=== PATIENT | female | born 1950 | race Asian ===

== ENCOUNTER 2016-06-20 13:44 | Outpatient (CLI) | payer OTHER ==
[~2016-06-20 13:44] MED LIST: ASA FREE160 MG PO; CARAFATE1 GM PO; CIPRO500 MG PO; CYMBALTA30 MG PO; DOCU100C10 PO; DULO30CA OR; EQ OMEPRAZOLE20 MG OR; FENT50DI TD; FERR325T5 PO; FLUC150T PO; FLUT0.05 NAS; FURO40TA93 PO; GABA100C2 PO; GLIP10TA55 PO; HYDR12.54 PO; IBUP800T30 PO; LASIX40 MG OR; LEVAQUIN500 MG OR; LORTAB 10-325 M1 TAB PO; MECLIZINE25 MG OR; METF500T PO; METFORMIN500 M1 PO; METOCLOPRAM10 MG OR; METOCLOPRAM5 MG OR; NIFE60TA5 PO; OMEPRAZOLE20 M1 PO; OXYB5TAB56 PO; POTA20TA4 PO; PROCARDIA XL30 MG; PROCARDIA XL30 MG PO; SENOKOT8.6 MG PO; TEMA30CA18 PO; TOPAMAX100 MG PO; TOPI100T PO; VICODIN1 TA1 PO; VIT A & D; VITAMIN D PO; VITAMIN D1000 UNIT OR; ZANAFLEX4 M1 PO; [UNRECOGNIZED DRUG - CODE] OR
[2016-06-20 14:07] LABS: POTASSIUM 4.3 mmol/L (3.6-5.2)
== END 2016-06-20 14:44 | disposition home or self-care (01) ==
LOC: LABW 13:44
PROVIDERS: Internal Medicine Cardiovascular Disease
DX: R06.09 Other forms of dyspnea (principal); R60.0 Localized edema; Z09 Encounter for follow-up examination after completed treatment for conditions other than malignant neoplasm
CPT/HCPCS: 36415; 80048

== ENCOUNTER 2016-06-26 17:36 | Emergency (ER) | payer OTHER ==
[~2016-06-26] VITALS: Ht 162.6 cm; Wt 126.1 kg
[2016-06-26 17:45] VITALS: BP 157/73; TEMP 98
[2016-06-26 18:15] LABS: PLATELET COUNT 231 K/uL (152-353)
[2016-06-26 18:18] LABS: POTASSIUM 3.6 mmol/L (3.6-5.2)
== END 2016-06-26 19:25 | disposition home or self-care (01) ==
LOC: ED 17:36
DX: M51.86 Other intervertebral disc disorders, lumbar region (principal); M25.552 Pain in left hip
CPT/HCPCS: 80048; 81000; 85027; 99284; J1885

== ENCOUNTER 2016-07-02 13:20 | Outpatient (CLI) | payer OTHER | END 2016-07-02 23:00 | disposition home or self-care (01) | LOC: RAD 13:20 | DX: M06.09 Rheumatoid arthritis without rheumatoid factor, multiple sites (principal); E55.9 Vitamin D deficiency, unspecified ==

== ENCOUNTER 2016-08-08 13:44 | Emergency (ER) | payer OTHER ==
[~2016-08-08] VITALS: Ht 162.6 cm; Wt 123.4 kg
[2016-08-08] MEDS ORDERED: PRED20TA27 PO (14:58)
[2016-08-08 14:59] VITALS: BP 139/86; TEMP 98
== END 2016-08-08 15:05 | disposition home or self-care (01) ==
LOC: ED 13:44
DX: G89.29 Other chronic pain (principal); M13.88 Other specified arthritis, other site
CPT/HCPCS: 96372; 99282; J1885

== ENCOUNTER 2016-10-25 11:06 | Outpatient (CLI) | payer OTHER ==
[~2016-10-25 11:06] MED LIST changes: +PRED20TA27 PO
== END 2016-10-25 20:01 | disposition home or self-care (01) ==
LOC: MAMMO 11:06
DX: Z12.31 Encounter for screening mammogram for malignant neoplasm of breast (principal)
CPT/HCPCS: G0202-TC

== ENCOUNTER 2016-11-08 13:42 | Emergency (ER) | payer OTHER ==
[~2016-11-08] VITALS: Ht 162.6 cm; Wt 121.6 kg
[2016-11-08 15:16] VITALS: BP 160/78; TEMP 98.2
== END 2016-11-08 15:24 | disposition home or self-care (01) ==
LOC: ED 13:42
DX: M19.022 Primary osteoarthritis, left elbow (principal)
CPT/HCPCS: 96372; 99283; J1885

== ENCOUNTER 2016-12-25 09:11 | Outpatient (CLI) | payer OTHER ==
[2016-12-25 09:41] LABS: PLATELET COUNT 182 K/uL (152-353)
[2016-12-25 10:09] LABS: POTASSIUM 4.2 mmol/L (3.6-5.2)
== END 2016-12-25 10:15 | disposition home or self-care (01) ==
LOC: LABW 09:11
PROVIDERS: Internal Medicine
DX: E11.9 Type 2 diabetes mellitus without complications (principal); I10 Essential (primary) hypertension; E66.01 Morbid (severe) obesity due to excess calories
CPT/HCPCS: 36415; 80053; 80061; 81000; 82043; 82570; 83036; 84443; 84550; 85027

== ENCOUNTER 2017-02-21 11:06 | Outpatient (CLI) | payer OTHER | END 2017-02-21 18:56 | disposition home or self-care (01) | LOC: LABW 11:06 | DX: M10.072 Idiopathic gout, left ankle and foot (principal) | CPT/HCPCS: 36415; 84550 ==

== ENCOUNTER 2017-03-27 13:27 | Outpatient (CLI) | payer OTHER | END 2017-03-27 14:30 | disposition home or self-care (01) | LOC: MAMMO 13:27 | DX: N64.4 Mastodynia (principal) ==

== ENCOUNTER 2017-06-23 14:37 | Outpatient (CLI) | payer OTHER | END 2017-06-23 20:42 | disposition home or self-care (01) | LOC: RESP 14:37 → MAMMO 15:00 → RESP 20:42 | DX: R06.09 Other forms of dyspnea (principal) | CPT/HCPCS: 94664 ==

== ENCOUNTER 2017-07-04 14:07 | Outpatient (CLI) | payer OTHER | END 2017-07-04 19:33 | disposition home or self-care (01) | LOC: MAMMO 14:07 | DX: N60.02 Solitary cyst of left breast (principal) ==

== ENCOUNTER 2017-08-05 16:02 | Outpatient (CLI) | payer OTHER | END 2017-08-05 19:52 | disposition home or self-care (01) | LOC: US 16:02 | DX: L03.116 Cellulitis of left lower limb (principal) ==

== ENCOUNTER 2017-08-18 15:53 | Outpatient (CLI) | payer OTHER ==
[2017-08-18 16:06] LABS: PLATELET COUNT 221 K/uL (152-353)
[2017-08-18 16:33] LABS: POTASSIUM 4.9 mmol/L (3.6-5.2)
== END 2017-08-18 19:24 | disposition home or self-care (01) ==
LOC: LABW 15:53
PROVIDERS: Internal Medicine
DX: E11.42 Type 2 diabetes mellitus with diabetic polyneuropathy (principal)
CPT/HCPCS: 36415; 80053; 80061; 81000; 82043; 82570; 83036; 84550; 85027

== ENCOUNTER 2017-09-11 16:02 | Outpatient (CLI) | payer OTHER ==
[2017-09-11 17:25] LABS: POTASSIUM 5.1 mmol/L (3.6-5.2)
== END 2017-09-11 19:37 | disposition home or self-care (01) ==
LOC: LABW 16:02
PROVIDERS: Internal Medicine
DX: R53.83 Other fatigue (principal)
CPT/HCPCS: 36415; 80048; 84439; 84443

== ENCOUNTER 2017-10-08 14:16 | Outpatient (CLI) | payer OTHER | END 2017-10-08 21:50 | disposition home or self-care (01) | LOC: US 14:16 | DX: M79.605 Pain in left leg (principal) ==

== ENCOUNTER 2017-12-22 19:15 | Emergency (ER) | payer OTHER ==
[~2017-12-22] VITALS: Ht 162.6 cm; Wt 117.0 kg
[2017-12-22 20:22] VITALS: BP 149/55; TEMP 98.5
== END 2017-12-22 20:47 | disposition home or self-care (01) ==
LOC: ED 19:15
DX: I82.402 Acute embolism and thrombosis of unspecified deep veins of left lower extremity (principal)
CPT/HCPCS: 99281

== ENCOUNTER 2017-12-23 15:17 | Outpatient (CLI) | payer OTHER | END 2017-12-23 19:14 | disposition home or self-care (01) | LOC: US 15:17 | DX: I80.3 Phlebitis and thrombophlebitis of lower extremities, unspecified (principal) ==

== ENCOUNTER 2018-01-01 15:05 | Outpatient (CLI) | payer OTHER ==
[2018-01-01 15:27] LABS: PLATELET COUNT 209 K/uL (152-353)
[2018-01-01 15:49] LABS: POTASSIUM 3.8 mmol/L (3.6-5.2)
== END 2018-01-01 22:54 | disposition home or self-care (01) ==
LOC: LABW 15:05
PROVIDERS: Internal Medicine
DX: E11.9 Type 2 diabetes mellitus without complications (principal)
CPT/HCPCS: 36415; 80053; 80061; 82043; 82570; 83036; 84439; 85027

== ENCOUNTER 2018-01-05 12:54 | Outpatient (CLI) | payer OTHER | END 2018-01-05 20:34 | disposition home or self-care (01) | LOC: CT 12:54 | DX: R10.31 Right lower quadrant pain (principal) | CPT/HCPCS: Q9963 ==

== ENCOUNTER 2018-01-14 10:04 | Outpatient (CLI) | payer OTHER | END 2018-01-14 22:11 | disposition home or self-care (01) | LOC: MAMMO 10:04 | DX: R92.8 Other abnormal and inconclusive findings on diagnostic imaging of breast (principal); M19.072 Primary osteoarthritis, left ankle and foot | CPT/HCPCS: 36415; 84550; 85651 ==

== ENCOUNTER 2018-04-07 14:18 | Outpatient (CLI) | payer OTHER ==
[2018-04-08] MEDS ORDERED: LINZESS290 MCG PO (20:24)
[2018-04-08] MEDS ORDERED: PANTOPRAZOLE 40MG TA PO (20:27)
[2018-04-08] MEDS ORDERED: ELIQUIS5 MG PO (21:42)
== END 2018-04-07 21:27 | disposition home or self-care (01) ==
LOC: RAD 14:18
DX: M79.604 Pain in right leg (principal)

== ENCOUNTER 2018-04-08 11:47 | Outpatient (CLI) | payer OTHER ==
[2018-04-08 13:30] LABS: POTASSIUM 4.4 mmol/L (3.6-5.2)
[2018-04-08] MEDS ORDERED: LINZESS290 MCG PO (20:24)
[2018-04-08] MEDS ORDERED: PANTOPRAZOLE 40MG TA PO (20:27)
[2018-04-08] MEDS ORDERED: ELIQUIS5 MG PO (21:42)
[2018-04-09] MEDS ORDERED: GABA400C2 PO ×2 (06:25→06:26)
[2018-04-09] MEDS ORDERED: METFORMIN HYD1000 M1 PO (06:28)
[2018-04-09] MEDS ORDERED: TIZANIDINE HYDRO4 MG PO (06:30)
[2018-04-09] MEDS ORDERED: TOPAMAX200 MG PO (06:31)
== END 2018-04-08 21:00 | disposition home or self-care (01) ==
LOC: LABW 11:47
PROVIDERS: Internal Medicine
DX: E11.9 Type 2 diabetes mellitus without complications (principal); D64.9 Anemia, unspecified
CPT/HCPCS: 36415; 80048; 83540; 83735; 84443

== ENCOUNTER 2018-04-08 15:09 | Outpatient (CLI) | payer OTHER ==
[2018-04-08] MEDS ORDERED: LINZESS290 MCG PO (20:24)
[2018-04-08] MEDS ORDERED: PANTOPRAZOLE 40MG TA PO (20:27)
[2018-04-08] MEDS ORDERED: ELIQUIS5 MG PO (21:42)
[2018-04-09] MEDS ORDERED: GABA400C2 PO ×2 (06:25→06:26)
[2018-04-09] MEDS ORDERED: METFORMIN HYD1000 M1 PO (06:28)
[2018-04-09] MEDS ORDERED: TIZANIDINE HYDRO4 MG PO (06:30)
[2018-04-09] MEDS ORDERED: TOPAMAX200 MG PO (06:31)
== END 2018-04-08 15:19 | disposition short-term general hospital (02) ==
LOC: AMB 15:09
DX: R55 Syncope and collapse (principal)
CPT/HCPCS: A0425; A0427

== ENCOUNTER 2018-04-08 15:22 | Observation (INO) | payer OTHER ==
[2018-04-08] VITALS (7 sets, daily range): BP systolic 112–158; BP diastolic 53–83; TEMP 97.9–98.5; Ht 162.6 cm; Wt 109.9 kg
[~2018-04-08] VITALS: Ht 162.6 cm; Wt 109.9 kg
[2018-04-08 17:14] LABS: PLATELET COUNT 238 K/uL (152-353)
[2018-04-08 17:23] LABS: PARTIAL THROMBOPLASTIN TIME 29.3 SECONDS (24.5-33.6)
[2018-04-08 17:33] LABS: POTASSIUM 3.8 mmol/L (3.6-5.2)
[2018-04-08] MEDS ORDERED: LINZESS290 MCG PO (20:24)
[2018-04-08] MEDS ORDERED: PANTOPRAZOLE 40MG TA PO (20:27)
[2018-04-08] MEDS ORDERED: ELIQUIS5 MG PO (21:42)
[2018-04-09 04:00] VITALS: BP 108/45; TEMP 98.6
[2018-04-09] MEDS ORDERED: GABA400C2 PO ×2 (06:25→06:26)
[2018-04-09] MEDS ORDERED: METFORMIN HYD1000 M1 PO (06:28)
[2018-04-09] MEDS ORDERED: TIZANIDINE HYDRO4 MG PO (06:30)
[2018-04-09] MEDS ORDERED: TOPAMAX200 MG PO (06:31)
[2018-04-09 08:00] VITALS: BP 117/51; TEMP 97.6
[2018-04-09 08:21] LABS: PLATELET COUNT 193 K/uL (152-353)
[2018-04-09 08:31] LABS: POTASSIUM 3.8 mmol/L (3.6-5.2)
[2018-04-09 12:00] VITALS: BP 120/45; TEMP 97.9
[2018-04-09 16:00] VITALS: BP 148/64; TEMP 97.8
== END 2018-04-09 16:40 | disposition home or self-care (01) ==
LOC: ED 15:22 → MED/SURG 18:45
PROVIDERS: Internal Medicine; ADMIT Family Medicine
DX: R55 Syncope and collapse (principal); E66.01 Morbid (severe) obesity due to excess calories; I10 Essential (primary) hypertension; G47.33 Obstructive sleep apnea (adult) (pediatric); Z86.711 Personal history of pulmonary embolism; M79.7 Fibromyalgia; E11.40 Type 2 diabetes mellitus with diabetic neuropathy, unspecified; R06.02 Shortness of breath; E11.9 Type 2 diabetes mellitus without complications; D64.9 Anemia, unspecified
CPT/HCPCS: 36415; 80048; 80053; 81000; 82550; 83540; 83735; 83880; 84443; 84484; 85027; 85379; 85610; 85730; 93005; 99220; 99283; G0378; J1885

== ENCOUNTER 2018-04-25 08:29 | Emergency (ER) | payer OTHER ==
[~2018-04-25] VITALS: Ht 162.6 cm; Wt 109.8 kg
[~2018-04-25 08:29] MED LIST changes: +ELIQUIS5 MG PO; +GABA400C2 PO; +LINZESS290 MCG PO; +METFORMIN HYD1000 M1 PO; +PANTOPRAZOLE 40MG TA PO; +TIZANIDINE HYDRO4 MG PO; +TOPAMAX200 MG PO
[2018-04-25 08:34] VITALS: TEMP 97.7
[2018-04-25 09:17] LABS: PLATELET COUNT 218 K/uL (152-353)
[2018-04-25 09:24] LABS: POTASSIUM 3.4 mmol/L (3.6-5.2); SODIUM 143 mmol/L (136-145)
[2018-04-25] MEDS ORDERED: METFORMIN ER1000 MG PO (09:32)
[2018-04-25] MEDS ORDERED: NIFE60TA5 PO (09:34)
[2018-04-25] MEDS ORDERED: SPIRONOLACT50 MG PO (09:35)
[2018-04-25] MEDS ORDERED: DEXL60CA4 PO (09:37)
[2018-04-25 10:15] VITALS: BP 146/84
== END 2018-04-25 10:30 | disposition home or self-care (01) ==
LOC: ED 08:29
PROVIDERS: Family Medicine
DX: R06.09 Other forms of dyspnea (principal); R07.89 Other chest pain; F41.8 Other specified anxiety disorders; R00.1 Bradycardia, unspecified
CPT/HCPCS: 80053; 82550; 82553; 83880; 84484; 85027; 85379; 93005; 96372; 99283; J2060

== ENCOUNTER 2018-05-21 10:33 | Emergency (ER) | payer OTHER ==
[~2018-05-21] VITALS: Ht 162.6 cm; Wt 112.5 kg
[~2018-05-21 10:33] MED LIST changes: +DEXL60CA4 PO; +METFORMIN ER1000 MG PO; +SPIRONOLACT50 MG PO
[2018-05-21 11:09] LABS: PLATELET COUNT 246 K/uL (152-353)
[2018-05-21 11:15] LABS: POTASSIUM 4.5 mmol/L (3.6-5.2); SODIUM 136 mmol/L (136-145)
[2018-05-21 12:00] VITALS: TEMP 98.1
[2018-05-21 15:15] VITALS: BP 172/77
== END 2018-05-21 15:15 | disposition home or self-care (01) ==
LOC: ED 10:33
DX: R11.2 Nausea with vomiting, unspecified (principal); I10 Essential (primary) hypertension; R00.1 Bradycardia, unspecified; R42 Dizziness and giddiness
CPT/HCPCS: 36415; 80053; 82550; 82553; 84484; 85027; 93005; 96361; 96365; 96374; 99284; J2405

== ENCOUNTER 2018-05-26 11:07 | Outpatient (CLI) | payer OTHER | END 2018-05-26 22:11 | disposition home or self-care (01) | LOC: CT 11:07 | DX: R10.31 Right lower quadrant pain (principal) | CPT/HCPCS: Q9963 ==

== ENCOUNTER 2018-07-23 11:14 | Outpatient (CLI) | payer OTHER | END 2018-07-23 22:24 | disposition home or self-care (01) | LOC: RAD 11:14 | DX: M06.09 Rheumatoid arthritis without rheumatoid factor, multiple sites (principal); M79.671 Pain in right foot ==

== ENCOUNTER 2018-08-05 11:34 | Day surgery (SDC) | payer OTHER ==
[2018-08-05 12:16] LABS: POTASSIUM 3.9 mmol/L (3.6-5.2)
[2018-08-05 12:18] LABS: PLATELET COUNT 237 K/uL (152-353)
== END 2018-08-05 15:35 | disposition home or self-care (01) ==
LOC: OR 11:34
PROVIDERS: Internal Medicine Gastroenterology
PROC: 0DBM8ZZ Excision of Descending Colon, Via Natural or Artificial Opening Endoscopic (ICD-10-PCS; principal; 2018-08-05)
PROC: 0DBN8ZZ Excision of Sigmoid Colon, Via Natural or Artificial Opening Endoscopic (ICD-10-PCS; 2018-08-05)
DX: D12.4 Benign neoplasm of descending colon (principal); D12.5 Benign neoplasm of sigmoid colon; K57.30 Diverticulosis of large intestine without perforation or abscess without bleeding; K64.8 Other hemorrhoids; R10.31 Right lower quadrant pain; R19.4 Change in bowel habit; K59.09 Other constipation; R93.89 Abnormal findings on diagnostic imaging of other specified body structures; Z12.11 Encounter for screening for malignant neoplasm of colon
CPT/HCPCS: 80053; 85027; J2001; J2250; J2405; J2704

== ENCOUNTER 2018-08-12 20:05 | Emergency (ER) | payer OTHER ==
[~2018-08-12] VITALS: Ht 162.6 cm; Wt 114.8 kg
[2018-08-12 22:13] VITALS: BP 174/78; TEMP 98.5
== END 2018-08-12 22:24 | disposition home or self-care (01) ==
LOC: ED 20:05
DX: S09.8XXA Other specified injuries of head, initial encounter (principal); S16.1XXA Strain of muscle, fascia and tendon at neck level, initial encounter; S46.812A Strain of other muscles, fascia and tendons at shoulder and upper arm level, left arm, initial encounter; V43.53XA Car driver injured in collision with pick-up truck in traffic accident, initial encounter; Y92.89 Other specified places as the place of occurrence of the external cause
CPT/HCPCS: 96372; 99283; J1885

== ENCOUNTER 2018-08-12 20:35 | Outpatient (CLI) | payer OTHER | END 2018-08-12 20:42 | disposition short-term general hospital (02) | LOC: AMB 20:35 | DX: S09.8XXA Other specified injuries of head, initial encounter (principal); S16.1XXA Strain of muscle, fascia and tendon at neck level, initial encounter; S46.812A Strain of other muscles, fascia and tendons at shoulder and upper arm level, left arm, initial encounter; V43.53XA Car driver injured in collision with pick-up truck in traffic accident, initial encounter; Y92.89 Other specified places as the place of occurrence of the external cause | CPT/HCPCS: A0425; A0426 ==

== ENCOUNTER 2018-09-04 09:04 | Outpatient (CLI) | payer OTHER ==
[2018-09-04 09:42] LABS: PLATELET COUNT 213 K/uL (152-353)
[2018-09-04 10:06] LABS: POTASSIUM 3.8 mmol/L (3.6-5.2)
== END 2018-09-04 19:46 | disposition home or self-care (01) ==
LOC: LABW 09:04 → RAD 13:00 → LABW 19:46
PROVIDERS: Internal Medicine Rheumatology
DX: E11.42 Type 2 diabetes mellitus with diabetic polyneuropathy (principal); Z78.0 Asymptomatic menopausal state; M85.89 Other specified disorders of bone density and structure, multiple sites; M89.9 Disorder of bone, unspecified
CPT/HCPCS: 36415; 80053; 80061; 81000; 83036; 84439; 84443; 85027

== ENCOUNTER 2018-11-13 13:15 | Outpatient (CLI) | payer OTHER | END 2018-11-13 19:23 | disposition home or self-care (01) | LOC: MRI 13:15 | DX: M54.2 Cervicalgia (principal); M54.12 Radiculopathy, cervical region ==

== ENCOUNTER 2018-12-26 13:12 | Outpatient (CLI) | payer OTHER ==
[2018-12-26 14:02] LABS: PLATELET COUNT 218 K/uL (152-353)
[2018-12-26 14:25] LABS: POTASSIUM 4.7 mmol/L (3.6-5.2)
== END 2018-12-26 22:33 | disposition home or self-care (01) ==
LOC: LAB 13:12
PROVIDERS: Internal Medicine
DX: E11.9 Type 2 diabetes mellitus without complications (principal)
CPT/HCPCS: 36415; 80053; 80061; 81000; 83036; 84439; 84443; 85027

== ENCOUNTER 2019-01-29 13:47 | Outpatient (CLI) | payer OTHER ==
[2019-01-29 14:20] LABS: POTASSIUM 4.1 mmol/L (3.6-5.2)
[2019-01-29 14:45] LABS: PLATELET COUNT 243 K/uL (152-353)
== END 2019-01-29 23:59 | disposition home or self-care (01) ==
LOC: LABW 13:47
PROVIDERS: Orthopaedic Surgery
DX: E56.8 Deficiency of other vitamins (principal); M06.09 Rheumatoid arthritis without rheumatoid factor, multiple sites; M15.0 Primary generalized (osteo)arthritis; R53.83 Other fatigue; Z79.899 Other long term (current) drug therapy; M25.50 Pain in unspecified joint
CPT/HCPCS: 36415; 80053; 85027; 85651; 86140

== ENCOUNTER 2019-03-26 14:42 | Outpatient (CLI) | payer OTHER | END 2019-03-26 19:48 | disposition home or self-care (01) | LOC: RAD 14:42 | DX: M25.511 Pain in right shoulder (principal); M25.572 Pain in left ankle and joints of left foot ==

== ENCOUNTER 2019-06-01 15:02 | Outpatient (CLI) | payer OTHER ==
[2019-06-01 15:35] LABS: POTASSIUM 4.5 mmol/L (3.6-5.2)
== END 2019-06-01 20:13 | disposition home or self-care (01) ==
LOC: LABW 15:02
PROVIDERS: Physician Assistant
DX: G89.29 Other chronic pain (principal); R25.2 Cramp and spasm
CPT/HCPCS: 36415; 80053; 83735

== ENCOUNTER 2019-07-14 10:31 | Outpatient (CLI) | payer OTHER | END 2019-07-14 10:34 | disposition short-term general hospital (02) | LOC: AMB 10:31 | DX: M54.2 Cervicalgia (principal); M54.5 Low back pain; M79.601 Pain in right arm; M79.604 Pain in right leg; W18.39XA Other fall on same level, initial encounter; Y92.89 Other specified places as the place of occurrence of the external cause | CPT/HCPCS: A0425; A0427 ==

== ENCOUNTER 2019-07-14 10:38 | Emergency (ER) | payer OTHER ==
[~2019-07-14] VITALS: Ht 162.6 cm; Wt 130.2 kg
[2019-07-14 10:38] VITALS: TEMP 98.1
[2019-07-14 14:30] VITALS: BP 148/70
== END 2019-07-14 14:36 | disposition home or self-care (01) ==
LOC: ED 10:41
DX: S09.8XXA Other specified injuries of head, initial encounter (principal); S49.81XA Other specified injuries of right shoulder and upper arm, initial encounter; S39.012A Strain of muscle, fascia and tendon of lower back, initial encounter; S16.1XXA Strain of muscle, fascia and tendon at neck level, initial encounter; W18.39XA Other fall on same level, initial encounter; Y92.89 Other specified places as the place of occurrence of the external cause
CPT/HCPCS: 96372; 99283; J1885

== ENCOUNTER 2019-07-29 14:48 | Outpatient (CLI) | payer OTHER ==
[2019-07-29 15:41] LABS: POTASSIUM 3.8 mmol/L (3.6-5.2)
== END 2019-07-29 19:38 | disposition home or self-care (01) ==
LOC: LABW 14:48
PROVIDERS: Internal Medicine
DX: E83.42 Hypomagnesemia (principal)
CPT/HCPCS: 36415; 80053; 83735

== ENCOUNTER 2020-03-03 15:11 | Outpatient (CLI) | payer OTHER | END 2020-03-03 23:33 | disposition home or self-care (01) | LOC: LAB 15:11 | DX: K64.0 First degree hemorrhoids (principal) | CPT/HCPCS: 82272 ==

== ENCOUNTER 2020-03-13 10:25 | Outpatient (CLI) | payer OTHER ==
[2020-03-13 11:03] LABS: PLATELET COUNT 213 K/uL (152-353)
== END 2020-03-13 23:33 | disposition home or self-care (01) ==
LOC: LABW 10:25
PROVIDERS: Internal Medicine Gastroenterology
DX: R19.5 Other fecal abnormalities (principal)
CPT/HCPCS: 36415; 82272; 85027

== ENCOUNTER 2020-03-15 08:45 | Outpatient (CLI) | payer OTHER | END 2020-03-15 19:03 | disposition home or self-care (01) | LOC: LAB 08:45 | DX: R19.5 Other fecal abnormalities (principal) | CPT/HCPCS: 82272 ==

== ENCOUNTER 2020-03-16 05:39 | Outpatient (CLI) | payer OTHER | END 2020-03-16 19:38 | disposition home or self-care (01) | LOC: LAB 05:39 | DX: R19.5 Other fecal abnormalities (principal) | CPT/HCPCS: 82272 ==

== ENCOUNTER 2020-06-05 15:03 | Emergency (ER) | payer OTHER ==
[~2020-06-05] VITALS: Ht 162.6 cm; Wt 130.2 kg
[2020-06-05 15:03] VITALS: TEMP 98
[2020-06-05 15:48] LABS: PLATELET COUNT 246 K/uL (152-353)
[2020-06-05 18:52] VITALS: BP 139/90
== END 2020-06-05 18:58 | disposition home or self-care (01) ==
LOC: ED 15:03
PROVIDERS: Emergency Medicine Emergency Medical Services
DX: M06.89 Other specified rheumatoid arthritis, multiple sites (principal); R10.84 Generalized abdominal pain
CPT/HCPCS: 80053; 81000; 82150; 83690; 83735; 85027; 87088; 96360; 96375; 99284; J1200; J2270; J2930

== ENCOUNTER 2020-06-23 11:59 | Emergency (ER) | payer OTHER ==
[~2020-06-23] VITALS: Ht 162.6 cm; Wt 131.5 kg
[2020-06-23 12:19] VITALS: TEMP 98.6
[2020-06-23 16:08] LABS: PLATELET COUNT 202 K/uL (152-353)
[2020-06-23 16:18] LABS: POTASSIUM 4.6 mmol/L (3.6-5.2)
[2020-06-23 18:00] VITALS: BP 135/78
== END 2020-06-23 18:56 | disposition home or self-care (01) ==
LOC: ED 11:59
PROVIDERS: Family Medicine
DX: J30.89 Other allergic rhinitis (principal); I50.9 Heart failure, unspecified; Z20.828 Contact with and (suspected) exposure to other viral communicable diseases
CPT/HCPCS: 80053; 82728; 85027; 87502; 87635; 87651; 99283; U0003

== ENCOUNTER 2020-06-28 08:55 | Outpatient (CLI) | payer OTHER | END 2020-06-28 19:31 | disposition home or self-care (01) | LOC: LABW 08:55 | PROVIDERS: ATTEND Internal Medicine | DX: E11.9 Type 2 diabetes mellitus without complications (principal); E83.42 Hypomagnesemia | CPT/HCPCS: 36415; 80061; 82043; 82570; 83036; 83735; 84439; 84443 ==

== ENCOUNTER 2020-07-05 08:13 | Outpatient (CLI) | payer OTHER | END 2020-07-05 19:19 | disposition home or self-care (01) | LOC: LAB 08:13 | PROVIDERS: ATTEND Internal Medicine | DX: Z20.828 Contact with and (suspected) exposure to other viral communicable diseases (principal) | CPT/HCPCS: 87635; G2023; U0003 ==

== ENCOUNTER 2020-09-07 13:59 | Outpatient (CLI) | payer OTHER ==
[2020-09-07 14:51] LABS: PLATELET COUNT 237 K/uL (152-353)
[2020-09-07 14:52] LABS: POTASSIUM 4.8 mmol/L (3.6-5.2)
== END 2020-09-07 19:36 | disposition home or self-care (01) ==
LOC: LAB 13:59
PROVIDERS: ATTEND Internal Medicine
DX: Z00.00 Encounter for general adult medical examination without abnormal findings (principal); Z13.820 Encounter for screening for osteoporosis; Z79.899 Other long term (current) drug therapy
CPT/HCPCS: 80053; 80061; 81000; 82306; 84439; 84443; 85027

== ENCOUNTER 2020-10-27 15:48 | Outpatient (CLI) | payer OTHER | END 2020-10-27 22:43 | disposition home or self-care (01) | LOC: RAD 15:48 | PROVIDERS: ATTEND Nurse Practitioner Family | DX: M06.09 Rheumatoid arthritis without rheumatoid factor, multiple sites (principal); M19.011 Primary osteoarthritis, right shoulder; M47.816 Spondylosis without myelopathy or radiculopathy, lumbar region; M75.51 Bursitis of right shoulder ==

== ENCOUNTER 2020-10-31 13:23 | Outpatient (CLI) | payer OTHER | END 2020-10-31 19:36 | disposition home or self-care (01) | LOC: US 13:23 | PROVIDERS: ATTEND Podiatrist | DX: I73.9 Peripheral vascular disease, unspecified (principal) ==

== ENCOUNTER 2020-11-23 16:23 | Outpatient (CLI) | payer OTHER | END 2020-11-23 22:53 | disposition home or self-care (01) | LOC: RAD 16:23 | PROVIDERS: ATTEND Internal Medicine | DX: R10.84 Generalized abdominal pain (principal) ==

== ENCOUNTER 2021-02-05 09:38 | Outpatient (CLI) | payer OTHER | END 2021-02-05 21:45 | disposition home or self-care (01) | LOC: RAD 09:38 | PROVIDERS: ATTEND Nurse Practitioner Family | DX: Z79.899 Other long term (current) drug therapy (principal); M47.896 Other spondylosis, lumbar region; M85.89 Other specified disorders of bone density and structure, multiple sites; R60.9 Edema, unspecified | CPT/HCPCS: A9561 ==

== ENCOUNTER 2021-03-27 10:45 | Emergency (ER) | payer OTHER ==
[~2021-03-27] VITALS: Ht 162.6 cm; Wt 134.7 kg
[2021-03-27 10:45] VITALS: TEMP 98.7
[2021-03-27 11:23] LABS: PLATELET COUNT 237 K/uL (152-353)
[2021-03-27 14:05] VITALS: BP 136/71
== END 2021-03-27 14:05 | disposition home or self-care (01) ==
LOC: ED 10:45
PROVIDERS: Hospitalist
DX: S16.1XXA Strain of muscle, fascia and tendon at neck level, initial encounter (principal); I50.9 Heart failure, unspecified; V49.40XA Driver injured in collision with unspecified motor vehicles in traffic accident, initial encounter; Y92.89 Other specified places as the place of occurrence of the external cause
CPT/HCPCS: 80048; 80320; 85027; 85610; 85730; 96374; 99284; J1885

== ENCOUNTER 2021-04-04 05:48 | Outpatient (CLI) | payer OTHER | END 2021-04-04 21:49 | disposition home or self-care (01) | LOC: RAD 05:48 | PROVIDERS: ATTEND Internal Medicine | DX: M25.512 Pain in left shoulder (principal) ==

== ENCOUNTER 2021-05-02 07:53 | Outpatient (CLI) | payer OTHER | END 2021-05-02 20:28 | disposition home or self-care (01) | LOC: US 07:53 | PROVIDERS: ATTEND Podiatrist | DX: I73.9 Peripheral vascular disease, unspecified (principal) ==

== ENCOUNTER → 2021-05-28 | Outpatient (CLI) | payer OTHER | LOC: RAD 12:32 | PROVIDERS: ATTEND Nurse Practitioner Family | DX: M06.09 Rheumatoid arthritis without rheumatoid factor, multiple sites (principal); M19.011 Primary osteoarthritis, right shoulder; M25.531 Pain in right wrist; M85.89 Other specified disorders of bone density and structure, multiple sites ==

== ENCOUNTER 2021-07-05 12:14 | Outpatient (CLI) | payer OTHER ==
[2021-07-05 12:58] LABS: PLATELET COUNT 213 K/uL (152-353)
[2021-07-05 13:28] LABS: POTASSIUM 4.3 mmol/L (3.6-5.2)
== END 2021-07-05 19:11 | disposition home or self-care (01) ==
LOC: LAB 12:14
PROVIDERS: ATTEND Internal Medicine
DX: E11.9 Type 2 diabetes mellitus without complications (principal); M19.91 Primary osteoarthritis, unspecified site
CPT/HCPCS: 80053; 80061; 81000; 82306; 83036; 83735; 84439; 84443; 85027

== ENCOUNTER 2021-07-16 08:33 | Outpatient (CLI) | payer OTHER | END 2021-07-16 19:00 | disposition home or self-care (01) | LOC: MRI 08:33 | PROVIDERS: ATTEND Podiatrist | DX: M76.822 Posterior tibial tendinitis, left leg (principal) ==

== ENCOUNTER 2021-07-30 13:09 | Outpatient (CLI) | payer OTHER ==
[2021-07-30 14:00] LABS: POTASSIUM 5.1 mmol/L (3.6-5.2)
== END 2021-07-30 19:17 | disposition home or self-care (01) ==
LOC: LAB 13:09
PROVIDERS: ATTEND Internal Medicine
DX: E83.42 Hypomagnesemia (principal)
CPT/HCPCS: 80048; 83735

== ENCOUNTER 2021-08-30 08:09 | Outpatient (CLI) | payer OTHER | END 2021-08-30 20:38 | disposition home or self-care (01) | LOC: RESP 08:09 | PROVIDERS: ATTEND Nurse Practitioner Family | DX: R06.09 Other forms of dyspnea (principal) ==

== ENCOUNTER 2021-10-17 09:02 | Outpatient (CLI) | payer OTHER | END 2021-10-17 21:38 | disposition home or self-care (01) | LOC: RAD 09:02 | PROVIDERS: ATTEND Nurse Practitioner Family | DX: M05.09 Felty's syndrome, multiple sites (principal); M47.816 Spondylosis without myelopathy or radiculopathy, lumbar region; M79.641 Pain in right hand; M81.0 Age-related osteoporosis without current pathological fracture; M85.89 Other specified disorders of bone density and structure, multiple sites ==

== ENCOUNTER 2021-11-09 10:01 | Emergency (ER) | payer OTHER ==
[~2021-11-09] VITALS: Ht 162.6 cm; Wt 135.6 kg
[2021-11-09 10:06] VITALS: BP 149/69; TEMP 98.3
== END 2021-11-09 10:55 | disposition home or self-care (01) ==
LOC: ED 10:01
DX: G89.29 Other chronic pain (principal); M79.7 Fibromyalgia
CPT/HCPCS: 93005; 96372; 99283; J2360

== ENCOUNTER 2021-11-15 14:47 | Outpatient (CLI) | payer OTHER | END 2021-11-15 19:00 | disposition home or self-care (01) | LOC: RAD 14:47 | PROVIDERS: ATTEND Internal Medicine | DX: S20.229D Contusion of unspecified back wall of thorax, subsequent encounter (principal); Y92.9 Unspecified place or not applicable ==

== ENCOUNTER 2021-11-29 10:58 | Observation (INO) | payer OTHER ==
[2021-11-29 10:58] VITALS: BP 144/61; TEMP 98.3
[2021-11-29 11:35] VITALS: BP 131/60
[2021-11-29 12:02] LABS: POTASSIUM 4.5 mmol/L (3.6-5.2)
[2021-11-29 12:07] LABS: PLATELET COUNT 214 K/uL (152-353)
[2021-11-29 12:22] LABS: PARTIAL THROMBOPLASTIN TIME 29.9 SECONDS (24.5-33.6)
[2021-11-29 18:02] VITALS: BP 161/70; TEMP 98; Ht 162.6 cm
[2021-11-29 20:00] VITALS: BP 143/46; TEMP 97.4
[2021-11-30] VITALS: BP 148/48; TEMP 97.2
[2021-11-30 04:00] VITALS: BP 129/46; TEMP 96.8
[2021-11-30 07:56] VITALS: BP 162/66; TEMP 97.8
[2021-11-30 09:57] VITALS: BP 135/63; TEMP 98.3
[2021-11-30] MEDS ORDERED: HYDROCODONE BIT1 TAB PO (10:56)
[2021-11-30] MEDS ORDERED: TEMA30CA18 PO (10:56)
[2021-11-30] MEDS ORDERED: FLUTICASON50 MCG/AC1 NAS (10:58)
[2021-11-30] MEDS ORDERED: MAGN400T4 PO (11:19)
[2021-11-30] MEDS ORDERED: GABA300C2 PO (11:21)
[2021-11-30] MEDS ORDERED: K-TAB20 MEQ PO (11:30)
[2021-11-30] MEDS ORDERED: FAMOTIDINE40 MG PO (11:31)
[2021-11-30 12:01] VITALS: BP 148/67; TEMP 98.1
== END 2021-11-30 13:58 | disposition home or self-care (01) ==
LOC: ED 10:58 → MED/SURG 15:44
PROVIDERS: ADMIT Emergency Medicine; ATTEND Internal Medicine
DX: R07.89 Other chest pain (principal); R06.02 Shortness of breath; R42 Dizziness and giddiness; I11.0 Hypertensive heart disease with heart failure; I50.9 Heart failure, unspecified; G47.33 Obstructive sleep apnea (adult) (pediatric); K21.9 Gastro-esophageal reflux disease without esophagitis; I82.499 Acute embolism and thrombosis of other specified deep vein of unspecified lower extremity; D50.8 Other iron deficiency anemias; E11.42 Type 2 diabetes mellitus with diabetic polyneuropathy; E11.65 Type 2 diabetes mellitus with hyperglycemia; M79.7 Fibromyalgia; T45.8X5A Adverse effect of other primarily systemic and hematological agents, initial encounter; Y92.89 Other specified places as the place of occurrence of the external cause
CPT/HCPCS: 36415; 80053; 82550; 82948; 84484; 85027; 85610; 85730; 87635; 93005; 96360; 96372; 96374; 96375; 99220; 99284; G0378; J0171; J1200; J1650; J1815; J2930; U0003

== ENCOUNTER 2021-12-18 10:03 | Outpatient (CLI) | payer OTHER ==
[~2021-12-18 10:03] MED LIST changes: +FAMOTIDINE40 MG PO; +FLUTICASON50 MCG/AC1 NAS; +GABA300C2 PO; +HYDROCODONE BIT1 TAB PO; +K-TAB20 MEQ PO; +MAGN400T4 PO
== END 2021-12-18 18:51 | disposition home or self-care (01) ==
LOC: RAD 10:03
PROVIDERS: ATTEND Orthopaedic Surgery
DX: M25.551 Pain in right hip (principal); M25.552 Pain in left hip; M54.59 Other low back pain

== ENCOUNTER 2021-12-26 13:59 | Outpatient (CLI) | payer OTHER | END 2021-12-26 18:57 | disposition home or self-care (01) | LOC: MRI 13:59 | PROVIDERS: ATTEND Orthopaedic Surgery | DX: M54.59 Other low back pain (principal) ==

== ENCOUNTER 2022-02-06 14:40 | Emergency (ER) | payer OTHER ==
[~2022-02-06] VITALS: Ht 162.6 cm; Wt 135.6 kg
[2022-02-06 14:47] VITALS: BP 153/61; TEMP 98.2
[2022-02-06 15:41] LABS: PLATELET COUNT 235 K/uL (152-353)
[2022-02-06 15:47] LABS: POTASSIUM 4.3 mmol/L (3.6-5.2)
[2022-02-06] MEDS ORDERED: MECLIZINE 2525 MG PO (17:26)
== END 2022-02-06 17:32 | disposition home or self-care (01) ==
LOC: ED 14:40
PROVIDERS: Emergency Medicine Emergency Medical Services
DX: H83.03 Labyrinthitis, bilateral (principal)
CPT/HCPCS: 80048; 81002; 84484; 85027; 93005; 99282; 99283

== ENCOUNTER 2022-04-10 14:34 | Outpatient (CLI) | payer OTHER ==
[~2022-04-10 14:34] MED LIST changes: +MECLIZINE 2525 MG PO
[2022-04-10 15:10] LABS: PLATELET COUNT 260 K/uL (152-353)
[2022-04-10 15:32] LABS: POTASSIUM 4.3 mmol/L (3.6-5.2)
== END 2022-04-10 19:01 | disposition home or self-care (01) ==
LOC: LAB 14:34
PROVIDERS: ATTEND Internal Medicine
DX: I10 Essential (primary) hypertension (principal); E11.9 Type 2 diabetes mellitus without complications
CPT/HCPCS: 80053; 80061; 83036; 84439; 84443; 85027

== ENCOUNTER 2022-04-22 13:21 | Outpatient (CLI) | payer OTHER | END 2022-04-22 19:42 | disposition home or self-care (01) | LOC: US 13:21 | PROVIDERS: ATTEND Internal Medicine | DX: R09.89 Other specified symptoms and signs involving the circulatory and respiratory systems (principal) ==

== ENCOUNTER 2022-07-11 10:51 | Outpatient (CLI) | payer OTHER ==
[2022-07-11 11:32] LABS: POTASSIUM 4.4 mmol/L (3.6-5.2)
== END 2022-07-11 19:47 | disposition home or self-care (01) ==
LOC: LAB 10:51
PROVIDERS: ATTEND Internal Medicine
DX: Z01.818 Encounter for other preprocedural examination (principal); E11.9 Type 2 diabetes mellitus without complications
CPT/HCPCS: 80053; 83036

== ENCOUNTER 2022-07-29 18:46 | Observation (INO) | payer OTHER ==
[2022-07-29] VITALS (8 sets, daily range): BP systolic 120–185; BP diastolic 50–82; TEMP 97.7–98.1; Ht 165.1 cm; Wt 136.2 kg
[~2022-07-29] VITALS: Ht 165.1 cm; Wt 136.2 kg
[2022-07-29 19:52] LABS: PLATELET COUNT 230 K/uL (152-353)
[2022-07-29 20:03] LABS: POTASSIUM 5.4 mmol/L (3.6-5.2)
[2022-07-30 03:30] VITALS: BP 144/60; TEMP 98.6
[2022-07-30 05:19] LABS: PLATELET COUNT 203 K/uL (152-353)
[2022-07-30 05:34] LABS: POTASSIUM 3.9 mmol/L (3.6-5.2)
[2022-07-30 08:00] VITALS: BP 139/60; TEMP 98.5
== END 2022-07-30 11:15 | disposition home or self-care (01) ==
LOC: ED 18:46 → MED/SURG 22:20
PROVIDERS: ADMIT Emergency Medicine Emergency Medical Services; ATTEND Internal Medicine
DX: R07.89 Other chest pain (principal); E78.49 Other hyperlipidemia; Z86.711 Personal history of pulmonary embolism; G47.33 Obstructive sleep apnea (adult) (pediatric); G40.802 Other epilepsy, not intractable, without status epilepticus; G47.09 Other insomnia; K21.9 Gastro-esophageal reflux disease without esophagitis; M79.7 Fibromyalgia; M06.8A Other specified rheumatoid arthritis, other specified site; E83.42 Hypomagnesemia; I11.0 Hypertensive heart disease with heart failure; I50.9 Heart failure, unspecified; E11.42 Type 2 diabetes mellitus with diabetic polyneuropathy; E11.65 Type 2 diabetes mellitus with hyperglycemia; E66.01 Morbid (severe) obesity due to excess calories; Z68.42 Body mass index [BMI] 45.0-49.9, adult
CPT/HCPCS: 36415; 80053; 81002; 83735; 83880; 84484; 85027; 85610; 87635; 93005; 96365; 96375; 99220; 99284; G0378; J1940; J3475; U0003

== ENCOUNTER 2022-08-30 10:13 | Outpatient (CLI) | payer OTHER ==
[2022-08-30 11:31] LABS: PLATELET COUNT 244 K/uL (152-353)
[2022-08-30 11:47] LABS: POTASSIUM 4.5 mmol/L (3.6-5.2)
== END 2022-08-30 19:15 | disposition home or self-care (01) ==
LOC: LABW 10:13
PROVIDERS: ATTEND Podiatrist
DX: Z01.810 Encounter for preprocedural cardiovascular examination (principal); Z01.811 Encounter for preprocedural respiratory examination; Z01.812 Encounter for preprocedural laboratory examination; E11.9 Type 2 diabetes mellitus without complications; I50.9 Heart failure, unspecified; Z51.81 Encounter for therapeutic drug level monitoring; Z79.899 Other long term (current) drug therapy
CPT/HCPCS: 36415; 80053; 83036; 85027; 85610; 93005

== ENCOUNTER → 2022-09-12 | Outpatient (CLI) | payer OTHER | LOC: RAD 15:33 | PROVIDERS: ATTEND Anesthesiology | DX: M54.14 Radiculopathy, thoracic region (principal); M54.16 Radiculopathy, lumbar region ==

== ENCOUNTER 2022-12-05 13:53 | Outpatient (CLI) | payer OTHER ==
[2022-12-05 14:50] LABS: POTASSIUM 4.4 mmol/L (3.6-5.2)
[2022-12-05 14:57] LABS: PLATELET COUNT 276 K/uL (152-353)
== END 2022-12-05 19:02 | disposition home or self-care (01) ==
LOC: LAB 13:53
PROVIDERS: ATTEND Internal Medicine
DX: E11.9 Type 2 diabetes mellitus without complications (principal); E66.01 Morbid (severe) obesity due to excess calories; I10 Essential (primary) hypertension; Z79.899 Other long term (current) drug therapy
CPT/HCPCS: 80053; 80061; 81002; 82043; 83036; 83735; 84439; 84443; 85027

== ENCOUNTER 2023-02-05 16:44 | Outpatient (CLI) | payer OTHER | END 2023-02-05 20:43 | disposition home or self-care (01) | LOC: RAD 16:44 | PROVIDERS: ATTEND Nurse Practitioner Family | DX: J40 Bronchitis, not specified as acute or chronic (principal); E55.9 Vitamin D deficiency, unspecified; M06.09 Rheumatoid arthritis without rheumatoid factor, multiple sites; M54.51 Vertebrogenic low back pain; R53.83 Other fatigue; Z79.899 Other long term (current) drug therapy ==

== ENCOUNTER 2023-02-21 08:24 | Outpatient (CLI) | payer OTHER | END 2023-02-21 19:08 | disposition home or self-care (01) | LOC: RAD 08:24 | PROVIDERS: ATTEND Nurse Practitioner Family | DX: Z79.891 Long term (current) use of opiate analgesic (principal); N95.8 Other specified menopausal and perimenopausal disorders ==

== ENCOUNTER 2023-02-25 08:48 | Outpatient (CLI) | payer OTHER | END 2023-02-25 18:56 | disposition home or self-care (01) | LOC: RAD 08:48 | PROVIDERS: ATTEND Nurse Practitioner Family | DX: R13.12 Dysphagia, oropharyngeal phase (principal) ==

== ENCOUNTER 2023-03-19 10:06 | Outpatient (CLI) | payer OTHER | END 2023-03-19 19:22 | disposition home or self-care (01) | LOC: RAD 10:06 | PROVIDERS: ATTEND Nurse Practitioner Family | DX: R13.12 Dysphagia, oropharyngeal phase (principal) ==